=== PATIENT | female | born 1975 | race Caucasian/White ===

== ENCOUNTER 2024-11-16 11:01 | Inpatient (IN) | payer OTHER, SELFPAY ==
--- OUTSIDE RECORDS SUMMARY | 2024-11-12 14:04 | XMS_ITS | Encounter Summary ---
Author Organization [facility] Address [address] [place] [address] Care Team Providers Care Agricultural Real Estate Agent Name Role Phone Unavailable Primary Care Provider Unavailabl e Reason for Referral * Eval and Treat (5-7 Days) - Open Specialty Diagnoses / Procedures Referred By Jared silva Referred To Contact Diagnoses Breast abscess Procedures NV OFFICE/OUTPATIENT ESTABLISHED MOD MDM 30 MIN NV OFFICE/OUTPATIENT NEW MODERATE MDM 45 MINUTES Jaquan Ramirez MD [address] [place] [address] [place] [phone] Phone: tel: fax: Referral ID Status Reason Start Date Expiration Date Visits Re quested Visits Authorized [id number] Open 11/12/2024 11/12/2025 1 1 Reason for Visit * Reason Comments Abscess Encounter Details Date Type Department Care Team (Late st Contact Info) Description 11/12/2024 2:04 PM CDT - 11/12/2024 3:46 PM CDT [facility] [address] [address] [place] [id number] Jaquan Ramirez MD [address] [place] [address] [place] [phone] Breast abscess (Primary Dx) Discharge Disposition: Home or Self Care Social History Tobacco Use Types Packs/Day Years Used Date Smoking Tobacco: Never Tobacco Cessation:Counseling Given: Not Answered Alcohol Use Standard Drinks/Week Comments Never 0 (1 standard drink = 0.6 oz pur e alcohol) Comments Unknown Sex and Gender Information Value Date Recorded Sex Assigned at Not on file Legal Sex Female 1:59 PM CDT Gender Identity Not on file Sexual Orientation Not on file documented as of this encounter Last Filed Vital Signs Vital Sign Reading Time Taken Comments Blood Pressure 100/43 11/12/2024 3:45 PM CDT Pulse 72 11/12/2024 3:30 PM CDT Temperature 36.2 C (97.2 F) 11/12/2024 2:08 PM CDT Respiratory Rate 16 11/12/2024 3:45 PM CDT Oxygen Saturation 96% 11/12/2024 3:45 PM CDT Inhaled Oxygen Concentration - - Weight 98.2 kg (216 lb 9.6 oz) 11/12/2024 2:08 P M CDT Height 161.3 cm (5' 3.5 ) 11/12/2024 2:08 PM CDT Body Mass Index 37.77 11/12/2024 2:08 PM CDT documented in this encounter Discharge Instructions * Attachments The following attachments cannot be sent through Care Everywhere. * Breast Abscess (Malawian) * Ondansetron (Malawian) * Amoxicillin and Clavulanic Acid (Malawian) * Oxycodone (Malawian) documented in this encounter Medications at Time of Discharge amoxicillin-clavu lanate (AUGMENTIN) 875-125 mg tablet Take 1 Tablet by mouth every 12 hours for 10 days. 20 Tablet 11/12/2024 11/22/2024 oxyCODONE-acetami nophen (PERCOCET) 5-325 mg tabletIndications :Breast abscess Take 1 Tablet by mouth every 4 hours as needed for Pain, Moderate. Max Daily Amount: 6 Tablets 30 Tablet 11/12/2024 documented as of this encounter Progress Notes * Zenaida Baltazar RN - 11/12/2024 4:05 PM CDT [facility] Sepsis Surveillance note A positive vSepsis screen does not imply diagnosis. Potential vSepsis Time Zero: Yes (11/12/241544) Clinical Criteria documented at time of alert: Criteria A - Questionable Infection Present?: Yes (11/12/241544) Questionable source of infection: Risk for Skin/Soft Tissue Infection (11/12/241544) SIRS Criteria: Heart rate (pulse) > 90 bpm;WBC > 12 k/mcL (11/12/241544) Organ Dysfunction Criteria: Hypotension SBP < 90 or MAP < 65 (11/12/241544) Questionable Severe Sepsis/Questionable Septic Shock/Other?: Questionable Severe Sepsis (per [facility]) (11/12/241544) Initial Lactic Acid?: Yes, Ordered by Bedside;Collected - Yes (Within time frame) (11/12/241544) [facility] SEP-1 Bundle Elements at time of alert: Repeat Lactic Acid Ordered?: N/A (11/12/241544) Blood Cultures?: Yes, Ordered by Bedside;Collected - Yes (Within time frame) (11/12/241544) Antibiotics?: Ordered - Yes;Administered - Yes (Within time frame) (11/12/241544) All initial bundle elements ordered and/or completed; chat/call to bedside deferred. Will continue to monitor through the duration of the timer or until case is cancelled. Please call [email or web address] Seps[facility] if any assistance is needed. Please call [employer] Sepsis if the patient does not have severe sepsis / septic shock and the sepsis alert needs to be cancelled. [employer] Sepsis Zenaida Baltazar RN documented in this encounter ED Notes * Molly Marroquin RN - 11/12/2024 2:23 PM CDT Patient presents to the emergency department via private vehicle for a breast abscess. Patient reports history of HS and has had previous abscesses that have had to be surgically drained off of her breast and axilla. Patient states she developed a breast abscess a week ago. States she has had subjective fevers. States she has been using a heating pad over the area. Denies other symptoms. Vital signs as documented. * Jaquan Ramirez MD - 11/12/2024 1:59 PM CDTAssociated Order(s): Incision and Drainage HISTORY OF PRESENT ILLNESS Hiwot Gaona, a 49 y.o. female presents to the ED with a Chief Complaint of Abscess Subjective This is a 49-year-old white female who presents to the emergency department with a large left breast abscess. She states she first noticed this 1 week ago. Patient has a history of breast abscesses as well as axillary abscesses. She has been diagnosed with hidradenitis suppurativa. She has noticeda low-grade fever recently. Patient states she has had several surgeries on the breasts done in [place]. She recently moved to this area. REVIEW OF SYSTEMS Review of Systems Constitutional: Positive for fever. Negative for activity change, appetite change, chills, diaphoresis and fatigue. HENT: Negative for congestion, dental problem, ear pain, postnasal drip, rhinorrhea, sinus pressure, sore throat, tinnitus and trouble swallowing. Eyes: Negative for photophobia, pain, discharge, redness and visual disturbance. Respiratory: Negative for cough, chest tightness, shortness of breath and wheezing. Cardiovascular: Negative for chest pain, palpitations and leg swelling. Gastrointestinal: Negative for abdominal distention, abdominal pain, blood in stool, constipation, diarrhea, nausea and vomiting. Genitourinary: Negative for decreased urine volume, difficulty urinating, dyspareunia, dysuria, flank pain, frequency, hematuria, menstrual problem, pelvic pain, urgency, vaginal bleeding and vaginaldischarge. Musculoskeletal: Negative for arthralgias, back pain, gait problem, joint swelling, myalgias, neck pain and neck stiffness. Skin: Positive for color change. Negative for rash. Left breast abscess. Neurological: Negative for dizziness, seizures, speech difficulty, weakness, light-headedness, numbness and headaches. Hematological: Negative for adenopathy. Psychiatric/Behavioral: Negative for agitation, behavioral problems, confusion, dysphoric mood, hallucinations, self-injury, sleep disturbance and suicidal ideas. The patient is not nervous/anxious. All other systems reviewed and are negative. PAST MEDICAL HISTORY REVIEWED MEDICAL: Patient has no past medical history on file. SURGICAL: Patient has no past surgical history on file. FAMILY: Patient's family history is not on file. SOCIAL: reports that she has never smoked. She does not have any smokeless tobacco history on file. She reports that she does not drink alcohol and does not use drugs. No history on file. Social History Other Topics Concern Not on file ALLERGIES Septa HOME MEDICATIONS Discharge Medication List as of 11/12/2024 3:58 PM START taking these medications Details amoxicillin-clavulanate (AUGMENTIN) 875-125 mg tablet Take 1 Tablet by mouth every 12 hours for 10 days., Disp-20 Tablet, R-0 oxyCODONE-acetaminophen (PERCOCET) 5-325 mg tablet Take 1 Tablet by mouth every 4 hours as needed for Pain, Moderate. Max Daily Amount: 6 Tablets, Disp-30 Tablet, R-0 Objective PHYSICAL EXAM INITIAL VS BP: 128/68 (11/12/24 1408), Heart Rate: 94 bpm (11/12/24 1408), Resp: 16 (11/12/24 1408), Pulse: 76(11/12/24 1430), Temp: 97.2 ??F (36.2 ??C) (11/12/24 1408), Temp src: Temporal (11/12/24 140), SpO2: 97 % (11/12/24 140), Height: 5' 3.5 (161.3 cm) (11/12/24 1408), Weight: 98.2 kg (216 lb 9.6 oz)(11/12/24 140), BMI (Calculated): (!) 37.74 (11/12/24 140) No LMP recorded. Physical Exam Vitals and nursing note reviewed. Constitutional: General: She is in acute distress (mild). Appearance: She is well-developed. HENT: Head: Normocephalic and atraumatic. Eyes: Conjunctiva/sclera: Conjunctivae normal. Pupils: Pupils are equal, round, and reactive to light. Cardiovascular: Rate and Rhythm: Normal rate and regular rhythm. Heart sounds: Normal heart sounds. Pulmonary: Effort: Pulmonary effort is normal. No respiratory distress. Breath sounds: Normal breath sounds. Abdominal: General: Bowel sounds are normal. Palpations: Abdomen is soft. Tenderness: There is no abdominal tenderness. Musculoskeletal: General: No tenderness. Normal range of motion. Cervical back: Normal range of motion and neck supple. Skin: General: Skin is warm and dry. Comments: There appears to be an abscess over the left breast just medial to the nipple involving the areola. There is a large surrounding area of erythema. Abscess fluctuant. Very tender. No active drainage. Neurological: Mental Status: She is alert and oriented to person, place, and time. Cranial Nerves: No cranial nerve deficit. Psychiatric: Behavior: Behavior normal. Thought Content: Thought content normal. DIAGNOSTICS LAB: CBC WITH DIFFERENTIAL - Abnormal Result Value WBC 14.4 (*) RBC 4.65 HEMOGLOBIN 13.3 HEMATOCRIT 40.0 MCV 86.0 MCH 28.6 MCHC 33.3 RDW 13.1 RDW-STDEV 40.9 PLATELETS 271 MPV 10.6 NEUTROPHILS 72 (*) LYMPHOCYTES 16 (*) MONOCYTES 10 EOSINOPHILS 1 BASOPHILS 0 IMMATURE GRANULOCYTES 0 NEUTROPHIL ABSOLUTE 10.45 (*) LYMPHOCYTE ABSOLUTE 2.25 MONOCYTE ABSOLUTE 1.50 (*) EOSINOPHIL ABSOLUTE 0.15 BASOPHILS ABSOLUTE 0.06 IMMATURE GRANULOCYTES ABSOLUTE 0.03 BASIC METABOLIC PANEL - Abnormal SODIUM 138 POTASSIUM 4.4 CHLORIDE 100 CO2 23 CALCIUM 9.3 BUN 16 CREATININE 0.92 GLUCOSE 105 (*) GFR >60 ANION GAP 15 LACTIC ACID - Normal LACTIC ACID 2.0 BLOOD CULTURE BLOOD CULTURE MANUAL DIFFERENTIAL PLATELET EST. Adequate RBC MORPHOLOGY Normal CLUMPED PLATELETS Present GIANT PLATELETS Present RADIOLOGY: No orders to display EKG: PROCEDURES Incision and Drainage Date/Time: 11/12/2024 2:58 PM Performed by: Jaquan Ramirez MD Authorized by: Jaquan Ramirez MD Consent: Consent obtained: Verbal Consent given by: Patient Risks discussed: Pain Location: Type: Abscess Location: Trunk Trunk location: L breast Pre-procedure details: Skin preparation: Povidone-iodine Sedation: Sedation type: None Anesthesia: Anesthesia method: Local infiltration Local anesthetic: Lidocaine 1% w/o epi Procedure type: Complexity: Simple Procedure details: Ultrasound guidance: no Needle aspiration: no Incision types: Stab incision Incision depth: Subcutaneous Drainage: Bloody Drainage amount: Scant Packing materials: None Post-procedure details: Procedure completion: Tolerated with difficulty MEDICAL DECISION MAKING AND PLAN OF CARE Medical Decision Making I was unable to obtain any significant drainage from the I&D. The abscess is likely much deeperthan anticipated. We did start an IV and lei labs. [facility]. I discussed this case with Dr. Wilson, breast surgeon, [facility]. She recommends scheduling an ultrasound-guided drainage. They will schedule that through the breast center in [place] and contact the patient. Patient was given 3 g of Unasyn IV here as well as Dilaudid for pain. Patient was discharged in stable condition with prescriptions for Augmentin and Percocet. She was told the breast clinic will contact her regarding the appointment for the ultrasound-guided drainage. Amount and/or Complexity of Data Reviewed Labs: ordered. Risk Prescription drug management. Clinical Scoring & Consults Medications Administered During the ED Stay from 11/12/2024 1359 to 11/15/2024 1913 Date/Time Order Dose Route Action 11/12/2024 1445 CDT lidocaine 1 % (XYLOCAINE) injection 200 mg 200 mg Infiltration Admin by AnotherClinician (Comment) 11/12/2024 1554 CDT ampicillin-sulbactam (UNASYN) 3 Gram in sodium chloride 0.9 % 100 mL IVPB 0 Gram IV Stopped 11/12/2024 1524 CDT ampicillin-sulbactam (UNASYN) 3 Gram in sodium chloride 0.9 % 100 mL IVPB 3 Gram IV New Bag 11/12/2024 1501 CDT HYDROmorphone (PF) (DILAUDID) injection 0.5 mg 0.5 mg IV Given 11/12/2024 1500 CDT ondansetron (ZOFRAN) 4 mg/2 mL injection 4 mg 4 mg IV Given Discharge Medication List as of 11/12/2024 3:58 PM START taking these medications Details amoxicillin-clavulanate (AUGMENTIN) 875-125 mg tablet Take 1 Tablet by mouth every 12 hours for 10 days., Disp-20 Tablet, R-0 oxyCODONE-acetaminophen (PERCOCET) 5-325 mg tablet Take 1 Tablet by mouth every 4 hours as needed for Pain, Moderate. Max Daily Amount: 6 Tablets, Disp-30 Tablet, R-0 LAST VS BP: (!) 100/43 (11/12/24 1545), Heart Rate: 94 bpm (11/12/24 1408), Resp: 16 (11/12/24 1545), Pulse: 72 (11/12/24 1530), Temp: 97.2 ??F (36.2 ??C) (11/12/24 1408), Temp src: Temporal (11/12/24 1408),SpO2: 96 % (11/12/24 1545) CLINICAL IMPRESSION Final diagnoses: [N61.1] Breast abscess (Primary) DISPOSITION, EDUCATION AND MEDICATION RECONCILIATION Medications reconciled. See after visit summary for patient education on discharged patients. ED Disposition ED Disposition Discharge Condition Stable User Sindlinger, Jaquan S, MD Date/Time FriNov 12, 2024 3:32 PM Comment -- ATTESTATION STATEMENTS documented in this encounter Plan of Treatment Pending Results Name Type Priority Associated Diagnoses Date /Time BLOOD CULTURE Microbiology Stat 3:07 PM CDT BLOOD CULTURE Microbiology Stat 3:12 PM CDT BLOOD CULTURE Microbiology Stat 3:07 PM CDT BLOOD CULTURE Microbiology Stat 3:12 PM CDT Scheduled Orders Name Type Priority Associated Diagnoses Orde r Schedule BLOOD CULTURE Microbiology Routine ONE TIME for 1 Occurrences starting 11/12/2024 until 11/12/2024 BLOOD CULTURE Microbiology Routine ONE TIME for 1 Occurrences starting 11/12/2024 until 11/12/2024 Scheduled Referrals Name Type Priority Associated Diagnoses Orde r Schedule AMB REFERRAL TO BREAST CLINIC Outpatient Referral Routine Breast abscess Ordered: 11/12/2024 documented as of this encounter Procedures Procedure Name Priority Date/Time Associated Diagnosis Comments BLOOD CULTURE Stat 11/12/2024 3:12 PM CDT BLOOD CULTURE Stat 11/12/2024 3:07 PM CDT INCISION AND DRAINAGE, ABSCESS Routine 11/12/2024 2:58 PM CDT DIFFERENTIAL, MANUAL Stat 11/12/2024 2:55 PM CDT LACTIC ACID Stat 11/12/2024 2:55 PM CDT CBC WITH DIFFERENTIAL Stat 11/12/2024 2:55 PM CDT BASIC METABOLIC PANEL Stat 11/12/2024 2:55 PM CDT documented in this encounter Results * Incision and Drainage (11/12/2024 2:58 PM CDT) Narrative Jaquan Ramirez MD - 11/12/2024 2:58 PM CDT Jaquan Ramirez MD 11/15/2024 7:13 PM Incision and Drainage Date/Time: 11/12/2024 2:58 PM Performed by: Jaquan Ramirez MD Authorized by: Jaquan Ramirez MD Consent: Consent obtained: Verbal Consent given by: Patient Risks discussed: Pain Location: Type: Abscess Location: Trunk Trunk location: L breast Pre-procedure details: Skin preparation: Povidone-iodine Sedation: Sedation type: None Anesthesia: Anesthesia method: Local infiltration Local anesthetic: Lidocaine 1% w/o epi Procedure type: Complexity: Simple Procedure details: Ultrasound guidance: no Needle aspiration: no Incision types: Stab incision Incision depth: Subcutaneous Drainage: Bloody Drainage amount: Scant Packing materials: None Post-procedure details: Procedure completion: Tolerated with difficulty Jaquan Ramirez MD PROCEDURE/MINOR SURGICAL ORDERABLES Final Result * MANUAL DIFFERENTIAL (11/12/2024 2:55 PM CDT) PLATELET EST. Adequate 11/12/2024 3:24 PM CDT [facility] RBC MORPHOLOGY Normal 11/12/2024 3:24 PM CDT [facility] CLUMPED PLATELETS Present 11/12/2024 3:24 PM CDT [facility] Comment:Rare platelet clump observed on slide. Platelets appear adequate. GIANT PLATELETS Present 3:24 PM CDT [facility] Blood Venipuncture / Unknown 11/12/2024 2:55 PM CDT 11/12/2024 3:00 PM CDT Jaquan Ramirez MD HEMATOLOGY ORDERABLES CO M Final Result [facility] CLIA # [id number] [address] [place] [id number] * LACTIC ACID (11/12/2024 2:55 PM CDT) LACTIC ACID 2.0 <=2.0 mmol/L 11/12/2024 3:25 PM CDT [facility] Blood BLOOD SPECIMEN / Unknown Venipuncture / Unknown 11/12/2024 2:55 PM CDT 11/12/2024 3:00 PM CDT Jaquan Ramirez MD CHEMISTRY ORDERABLES Fin al Result [facility] CLIA # [id number] [address] [address] * (ABNORMAL) BASIC METABOLIC PANEL (11/12/2024 2:55 PM CDT) SODIUM 138 136 - 145 mmol/L 11/12/2024 3:24 PM CDT [facility] POTASSIUM 4.4 3.5 - 5.1 mmol/L 11/12/2024 3:24 PM T [facility] CHLORIDE 100 98 - 107 mmol/L 11/12/2024 3:24 PM T [facility] CO2 23 22 - 29 mmol/L 11/12/2024 3:24 PM T [facility] CALCIUM 9.3 8.6 - 10.0 mg/dL 11/12/2024 3:24 PM T [facility] BUN 16 6 - 20 mg/dL 11/12/2024 3:24 PM [facility] CREATININE 0.92 0.51 - 0.95 mg/dL 11/12/2024 3:24 PM [facility] GLUCOSE 105(H) 74 - 99 mg/dL 11/12/2024 3:24 PM [facility] GFR >60 >=60 mL/min/1.7 3 sq meter 11/12/2024 3:24 PM T [facility] Comment:eGFR calculated with 2020 CKD-EPI equation. Vegetarian diet, extremely high or low muscle mass, and may affect results. Cystatin C with Glomerular Filtration Rate is a suitable alternative for these patients. ANION GAP 15 5 - 20 mmol/L 11/12/2024 3:24 PM T [facility] Blood Venipuncture / Unknown 11/12/2024 2:55 PM CDT 11/12/2024 3:00 PM CDT us Jaquan Ramirez MD CHEMISTRY ORDERABLES Fin al Result [facility] CLIA # [id number] [address] [place] [id number] * (ABNORMAL) CBC WITH DIFFERENTIAL (11/12/2024 2:55 PM CDT) WBC 14.4(H) 4.0 - 10.0 K/uL 11/12/2024 3:24 PM CDT [facility] RBC 4.65 3.93 - 5.22 M/uL 11/12/2024 3:24 PM [facility] HEMOGLOBIN 13.3 11.2 - 15.7 g/dL 11/12/2024 3:24 PM [facility] HEMATOCRIT 40.0 34.1 - 44.9 % 11/12/2024 3:24 PM T [facility] MCV 86.0 79.4 - 94.8 fL 11/12/2024 3:24 PM T [facility] MCH 28.6 25.6 - 32.2 pg 11/12/2024 3:24 PM [facility] MCHC 33.3 32.2 - 35.5 g/dL 11/12/2024 3:24 PM [facility] RDW 13.1 11.0 - 14.5 % 11/12/2024 3:24 PM [facility] RDW-STDEV 40.9 36.9 - 56.9 fL 11/12/2024 3:24 PM [facility] PLATELETS 271 163 - 337 K/uL 11/12/2024 3:24 PM [facility] MPV 10.6 10.0 - 14.8 fL 11/12/2024 3:24 PM [facility] NEUTROPHILS 72(H) 34 - 71 % 11/12/2024 3:24 PM T [facility] LYMPHOCYTES 16(L) 19 - 52 % 11/12/2024 3:24 PM CDT [facility] MONOCYTES 10 5 - 13 % 11/12/2024 3:24 PM T [facility] EOSINOPHILS 1 1 - 6 % 11/12/2024 3:24 PM [facility] BASOPHILS 0 0 - 1 % 11/12/2024 3:24 PM [facility] IMMATURE GRANULOCYTES 0 % 11/12/2024 3:24 PM T [facility] NEUTROPHIL ABSOLUTE 10.45(H) 1.56 - 6.13 K/uL 11/12/2024 3:24 PM [facility] LYMPHOCYTE ABSOLUTE 2.25 1.20 - 3.40 K/uL 11/12/2024 3:24 PM [facility] MONOCYTE ABSOLUTE 1.50(H) 0.24 - 0.36 K/uL 11/12/2024 3:24 PM [facility] EOSINOPHIL ABSOLUTE 0.15 0.04 - 0.36 K/uL 11/12/2024 3:24 PM [facility] BASOPHILS ABSOLUTE 0.06 0.01 - 0.08 K/uL 11/12/2024 3:24 PM [facility] IMMATURE GRANULOCYTES ABSOLUTE 0.03 K/uL 11/12/2024 3:24 PM [facility] Blood Venipuncture / Unknown 11/12/2024 2:55 PM CDT 11/12/2024 3:00 PM CDT Jaquan Ramirez MD HEMATOLOGY ORDERABLES nal Result [facility] CLIA # [id number] [address] [place] [id number] documented in this encounter Visit Diagnoses Diagnosis Breast abscess- Primary Inflammatory disease of breast documented in this encounter Administered Medications Inactive Administered Medications - up to 3 most recent administrations Medication Order MAR Action Action Date Dose Rate Site ampicillin-sulbactam (UNASYN) 3 Gram in sodium chloride 0.9 % 100 mL IVPB 3 Gram, IV, ONE TIME ONLY, 1 dose, On Fri11/12/24 at 1445, Routine, Antibiotic Indication: Wound / Cellulitis / Abscess New Bag 11/12/2024 3:24 PM CDT 3 Grams 230 mL/hr HYDROmorphone (PF) (DILAUDID) injection 0.5 mg 0.5 mg, IV, ONE TIME ONLY, 1 dose, On Fri11/12/24 at 1445, Stat Given 11/12/2024 3:01 PM CDT 0.5 mg lidocaine 1 % (XYLOCAINE) injection 200 mg 200 mg (20 mL), Infiltration, ONE TIME ONLY, 1 dose, On Fri11/12/24 at 1430, Routine Admin by Another Clinician (Comment) 11/12/2024 2:45 PM CDT 200 mg ondansetron (ZOFRAN) 4 mg/2 mL injection 4 mg 4 mg, IV, ONE TIME ONLY, 1 dose, On Fri11/12/24 at 1445, Stat Given 11/12/2024 3:00 PM CDT 4 mg documented in this encounter Active and Recently Administered Medications Times are shown in CDT. Scheduled Medication Order 11/10/2024 11/11/2024 11/12/2024 ampicillin-sulbactam (UNASYN) 3 Gram in sodium chloride 0.9 % 100 mL IVPB (COMPLETED) 3 Gram, IV, ONE TIME ONLY, 1 dose, On Fri11/12/24 at 1445, Routine, Antibiotic Indication: Wound / Cellulitis / Abscess 1524 (New Bag - Prov ider: Molly Marroquin RN)1554 (Stopped - Provider: Molly Marroquin RN) HYDROmorphone (PF) (DILAUDID) injection 0.5 mg (COMPLETED) 0.5 mg, IV, ONE TIME ONLY, 1 dose, On Fri11/12/24 at 1445, Stat 1501 (Given - Provid er: Vanessa Marquez RN) lidocaine 1 % (XYLOCAINE) injection 200 mg (COMPLETED) 200 mg (20 mL), Infiltration, ONE TIME ONLY, 1 dose, On Fri11/12/24 at 1430, Routine 1430 (Due)1445 (Admi n by Another Clinician (Comment) - Provider: Molly Marroquin RN - Comment: Dr. Ramirez) ondansetron (ZOFRAN) 4 mg/2 mL injection 4 mg (COMPLETED) 4 mg, IV, ONE TIME ONLY, 1 dose, On Fri11/12/24 at 1445, Stat 1500 (Given - Provid er: Vanessa Marquez RN) documented in this encounter
[2024-11-16] VITALS (7 sets, daily range): BP systolic 99–148; BP diastolic 67–88; PULSE 54–77; RESP 16–22; TEMP 36.7; O2SAT 96–100
--- OUTSIDE RECORDS SUMMARY | 2024-11-16 11:11 | XMS_ITS | Encounter Summary ---
Author Organization [employer] [facility] Address [address] [place] [address] Care Team Providers Care Residential Recycle Driver Name Role Phone Unavailable Primary Care Provider Unavailabl e Reason for Referral * Radiology Services (Urgent) - Authorized Specialty Diagnoses / Procedures Referred By Contac t Referred To Contact Diagnoses Left breast abscess Procedures MAMMO BREAST US SEROMA ASPIRATION LT US GUIDED ASPIRATION Venus Wilson DO [address] [place] [phone] Phone: tel: fax: [facility] Pre-Registration [place] CALL TO MAKE APPOINTMENT ONLY [address] [place] [address] Phone: tel: fax: Referral ID Status Reason Start Date Expiration Date V isits Requested Visits Authorized [id number] Authorized 11/12/2024 12/13/2025 1 1 * Radiology Services (Urgent) - Authorized Specialty Diagnoses / Procedures Referred By Contac t Referred To Contact Diagnoses Left breast abscess Procedures MAMMO BREAST US LEFT LTD Venus Wilson DO [address] [place] [phone] Phone: tel: fax: [facility] Pre-Registration [place] CALL TO MAKE APPOINTMENT ONLY [address] [place] [address] Phone: tel: fax: Referral ID Status Reason Start Date Expiration Date V isits Requested Visits Authorized [id number] Authorized 11/12/2024 12/13/2025 1 1 Encounter Details Date Type Department Care Team (Late st Contact Info) Description 11/12/2024 Chart Note [facility] Breast Surgery [address] [place] [address] Venus Wilson DO [address] [place] [address] Social History Tobacco Use Types Packs/Day Years Used Date Smoking Tobacco: Never Alcohol Use Standard Drinks/Week Comments Never 0 (1 standard drink = 0.6 oz pur e alcohol) Comments Unknown Sex and Gender Information Value Date Recorded Sex Assigned at Not on file Legal Sex Female 1:59 PM CDT Gender Identity Not on file Sexual Orientation Not on file documented as of this encounter Progress Notes * Venus Wilson DO - 11/12/2024 3:09 PM CDT Received a call from Dr. Ramirez at [place] regarding this patient and findings consistent with left breast abscess. I&D was attempted but did not results in any successful drainage. Reported history of hidradenitis. Vitals stable, labs pending. No imaging available. I recommend oral antibiotics and arranging for outpatient left breast limited ultrasound with US-guided aspiration of the abscess. She can follow up in our clinic if feasible for her. I will reach out to the breast center regarding her imaging. Venus Wilson DO documented in this encounter Plan of Treatment Scheduled Orders Name Type Priority Associated Diagnoses Orde r Schedule MAMMO BREAST US LEFT LTD Imaging Stat Left breast abscess 1 Occurrences starting 11/12/2024 until 05/15/2026 MAMMO BREAST US SEROMA ASPIRATION LT Imaging Stat Left breast abscess 1 Occurrences starting 11/12/2024 until 11/12/2025 documented as of this encounter Visit Diagnoses Diagnosis Left breast abscess- Primary Inflammatory disease of breast documented in this encounter
--- OUTSIDE RECORDS SUMMARY | 2024-11-16 11:11 | XMS_ITS | Encounter Summary ---
Author Organization [facility] Address [address] [facility] [address] [address] Attn: Epic Prelude ADT SOHAM WHITNEY [address] Care Team Providers Care Director Of District Office Name Role Phone Unavailable Primary Care Provider Unavailabl e Encounter Details Date Type Department Care Team (Latest Contact Info) Description 11/12/2024 Travel Social History Tobacco Use Types Packs/Day Years [...] on file documented as of this encounter Plan of Treatment Not on file documented as of this encounter Visit Diagnoses Not on filedocumented in this encounter
--- OUTSIDE RECORDS SUMMARY | 2024-11-16 11:11 | XMS_ITS | Clinical Summary ---
[facility] Address [address] [address] Phone Care Team Providers Care Construction Area Manager Name Role Phone Unavailable Primary Care Provider Unavailabl e Allergies Active Allergy Reactions Criticality Noted Date Comments Septa Rash,Nausea and Vomiting Low 11/12/2024 Medications amoxicillin-cla vulanate (AUGMENTIN) 875-125 mg tablet Take 1 Tablet by mouth every 12 hours for 10 days. 20 Tablet 11/12/2024 11/23/19 25 Active oxyCODONE-aceta minophen (PERCOCET) 5-325 mg tabletIndicatio ns:Breast abscess Take 1 Tablet by mouth every 4 hours as needed for Pain, Moderate. Max Daily Amount: 6 Tablets 30 Tablet 11/12/2024 Active ondansetron (ZOFRAN ODT) 4 mg Tablet, Rapid Dissolve Take 1 Tablet (4 mg) by mouth every 8 hours as needed for Nausea/Emesis . Dissolve tablet on top of tongue, then swallow with saliva. 20 Tablet 11/12/2024 Active Encounters Date Type Department Care Team Description 11/14/2024 Results Follow-Up [facility] Emergency Medicine [address] [address] oMlly Marroquin RN BLOOD CULTURE, BLOOD CULTURE 11/12/2024 2:04 PM CDT - 11/12/2024 3:46 PM CDT Emergency [facility] Emergency Medicine [address] [place] [phone] Jaquan Ramirez MD Breast abscess (Primary Dx) Discharge Disposition: Home or Self Care 11/12/2024 Chart Note [facility] Breast Surgery [address] [place] [address] Venus Wilson DO 11/12/2024 Travel from Last 3 Months Social History Tobacco Use Types Packs/Day Years [...] on file Sexual Orientation Not on file Last Filed Vital Signs Vital Sign Reading [...] Mass Index 37.77 11/12/2024 2:08 PM CDT Plan of Treatment Health Maintenance Due Date Last Done Comments Pre-Diabetes and Diabetes Screening 1977 DTAP/TDAP/TD VACCINES (1 - Tdap) 1996 HEPATITIS B VACCINES (1 of 3 - 19+ 3-dose series) 11/1996 BREAST CANCER SCREENING 2017 COLORECTAL SCREENING 2022 Colorectal Cancer Screening 2022 FIT-DNA Q 3 years 2022 FIT/FOBT Q 1 year 2022 Flex Sig/CT Colonography Q 5 years 2022 INFLUENZA VACCINE (#1) 2024 Procedures Procedure Name Priority Date/Time Associated Diagnosis Comments BLOOD CULTURE Stat 11/12/2024 3:12 PM CDT BLOOD CULTURE Stat 11/12/2024 3:07 PM CDT INCISION AND DRAINAGE, ABSCESS Routine 11/12/2024 2:58 PM CDT DIFFERENTIAL, MANUAL Stat 11/12/2024 2:55 PM CDT LACTIC ACID Stat 11/12/2024 2:55 PM CDT BASIC METABOLIC PANEL Stat 11/12/2024 2:55 PM CDT CBC WITH DIFFERENTIAL Stat 11/12/2024 2:55 PM CDT from Last 3 Months Results * Incision and Drainage (11/12/2024 2:58 [...] PLATELET EST. Adequate 11/12/2024 3:24 PM CDT [facility] RBC MORPHOLOGY Normal 11/12/2024 3:24 PM CDT [facility] CLUMPED PLATELETS Present 11/12/2024 3:24 PM CDT [facility] Comment:Rare platelet clump observed on slide. Platelets appear adequate. GIANT PLATELETS Present 3:24 PM CDT [facility] Blood Venipuncture / Unknown 11/12/2024 2:55 PM CDT 11/12/2024 3:00 PM CDT Jaquan Ramirez MD HEMATOLOGY ORDERABLES CO M Final Result [facility] CLIA # [id number] [address] [place] [id number] * LACTIC ACID (11/12/2024 2:55 PM CDT) LACTIC ACID 2.0 <=2.0 mmol/L 11/12/2024 3:25 PM CDT [facility] Blood BLOOD SPECIMEN / Unknown Venipuncture / Unknown 11/12/2024 2:55 PM CDT 11/12/2024 3:00 PM CDT Jaquan Ramirez MD CHEMISTRY ORDERABLES Fin al Result Performing Organization Address [facility] Co de Phone Number [facility] CLIA # [id number] [address] [place] [phone] * (ABNORMAL) CBC WITH DIFFERENTIAL (11/12/2024 2:55 PM CDT) WBC 14.4(H) 4.0 - 10.0 K/uL 11/12/2024 3:24 PM CDT [facility] RBC 4.65 3.93 - 5.22 M/uL 11/12/2024 3:24 PM CDT [facility] HEMOGLOBIN 13.3 11.2 - 15.7 g/dL 11/12/2024 3:24 PM CDT [facility] HEMATOCRIT 40.0 34.1 - 44.9 % 11/12/2024 3:24 PM CDT [facility] MCV 86.0 79.4 - 94.8 fL 11/12/2024 3:24 PM CDT [facility] MCH 28.6 25.6 - 32.2 pg 11/12/2024 3:24 PM CDT [facility] MCHC 33.3 32.2 - 35.5 g/dL 11/12/2024 3:24 PM [facility] RDW 13.1 11.0 - 14.5 % 11/12/2024 3:24 PM [facility] RDW-STDEV 40.9 36.9 - 56.9 fL 11/12/2024 3:24 PM [facility] PLATELETS 271 163 - 337 K/uL 11/12/2024 3:24 PM [facility] MPV 10.6 10.0 - 14.8 fL 11/12/2024 3:24 PM [facility] NEUTROPHILS 72(H) 34 - 71 % 11/12/2024 3:24 PM [facility] LYMPHOCYTES 16(L) 19 - 52 % 11/12/2024 3:24 PM [facility] MONOCYTES 10 5 - 13 % 11/12/2024 3:24 PM [facility] EOSINOPHILS 1 1 - 6 % 11/12/2024 3:24 PM [facility] BASOPHILS 0 0 - 1 % 11/12/2024 3:24 PM [facility] IMMATURE GRANULOCYTES 0 % 11/12/2024 3:24 PM [facility] NEUTROPHIL ABSOLUTE 10.45(H) 1.56 - 6.13 K/uL 11/12/2024 3:24 PM [facility] LYMPHOCYTE ABSOLUTE 2.25 1.20 - 3.40 K/uL 11/12/2024 3:24 PM [facility] MONOCYTE ABSOLUTE 1.50(H) 0.24 - 0.36 K/uL 11/12/2024 3:24 PM [facility] EOSINOPHIL ABSOLUTE 0.15 0.04 - 0.36 K/uL 11/12/2024 3:24 PM [facility] BASOPHILS ABSOLUTE 0.06 0.01 - 0.08 K/uL 11/12/2024 3:24 PM [facility] IMMATURE GRANULOCYTES ABSOLUTE 0.03 K/uL 11/12/2024 3:24 PM [facility] Blood Venipuncture / Unknown 11/12/2024 2:55 PM CDT 11/12/2024 3:00 PM CDT us Jaquan Ramirez MD HEMATOLOGY ORDERABLES Fi nal Result [facility] CLIA # [id number] [address] [place] [address] * (ABNORMAL) BASIC METABOLIC PANEL (11/12/2024 2:55 PM CDT) SODIUM 138 136 - 145 mmol/L 11/12/2024 3:24 PM T [facility] POTASSIUM 4.4 3.5 - 5.1 mmol/L 11/12/2024 3:24 PM [facility] CHLORIDE 100 98 - 107 mmol/L 11/12/2024 3:24 PM [facility] CO2 23 22 - 29 mmol/L 11/12/2024 3:24 PM [facility] CALCIUM 9.3 8.6 - 10.0 mg/dL 11/12/2024 3:24 PM [facility] BUN 16 6 - 20 mg/dL 11/12/2024 3:24 PM [facility] CREATININE 0.92 0.51 - 0.95 mg/dL 11/12/2024 3:24 PM [facility] GLUCOSE 105(H) 74 - 99 mg/dL 11/12/2024 3:24 PM [facility] GFR >60 >=60 mL/min/1.7 3 sq meter 11/12/2024 3:24 PM [facility] Comment:eGFR calculated with 2020 CKD-EPI equation. Vegetarian diet, extremely high or low muscle mass, and may affect results. Cystatin C with Glomerular Filtration Rate is a suitable alternative for these patients. ANION GAP 15 5 - 20 mmol/L 11/12/2024 3:24 PM [facility] Blood Venipuncture / Unknown 11/12/2024 2:55 PM CDT 11/12/2024 3:00 PM CDT us Jaquan Ramirez MD CHEMISTRY ORDERABLES Bakari al Result [facility] # [id number] [address] [place] [phone] from Last 3 Months
--- OUTSIDE RECORDS SUMMARY | 2024-11-16 11:11 | XMS_ITS | Encounter Summary ---
Author Organization [facility] Address [address] [place] [address] Care Team Providers Care Computer Aided Design Designer Name Role Phone Unavailable Primary Care Provider Unavailabl e Encounter Details Date Type Department Care Team (Late st Contact Info) Description 11/14/2024 Results Follow-Up [facility] Emergency Medicine [address] [place] [address] Molly Marroquin RN BLOOD CULTURE, BLOOD CULTURE Social History Tobacco Use Types Packs/Day Years [...]
--- NOTE | 2024-11-16 11:34 | W.ED.SKABFB ---
Documented by User: NORBERTO Barragan 11/16/24 14:24 HPI - Skin/Abscess/Foreign Bdy General: Chief complaint: Skin/Abscess/Foreign Body Stated complaint: lump lt breast Time Seen by Provider: 11/16/24 11:03 Source: patient Mode of arrival: ambulatory Limitations: no limitations History of Present Illness: Patient is a 49-year-old female with a longstanding history of hidradenitis suppurativa here for concerns of a left breast lesion/abscess. Patient states she has had several (6+) surgeries to the left breast due to these lesions. States she was initially seeing a general surgeon in [place], [place] who was performing them. She then switched to a breast specialist through [facility]. She states her last surgery was 2 years ago. She did have tissue sent for pathology and states it was negative for malignancy. She has not had a mammogram in several years. She states she is on Humira for her HS and has topical clobetasol that she uses for superficial lesions. Patient states currently she is on antibiotics for the left breast but states she is miserable. Did have area lanced a few days ago but states they did not go deep enough . She states the only thing that helps when she gets lesions this big/painful is surgical incision. MD complaint: abscess/boil Onset (ago): day(s) (9 days) Tetanus up to date: yes Location: chest (L breast) Severity: moderate Pain Consistency: constant Relieving factors: none Exacerbating factors: none Context: other (hx of hidradenitis suppurativa) Associated symptoms: Reports no associated symptoms; Deny chills or fever(s) Treatments prior to arrival: none Related Data Home Medications ?Medication ?Instructions ?Recorded ?Confirmed amoxicillin 875 mg-potassium 1 tab PO BID 11/16/24 11/16/24 clavulanate 125 mg tablet ondansetron 4 mg disintegrating 4 mg PO Q8H PRN Nausea And Vomiting 11/16/24 11/16/24 tablet oxycodone-acetaminophen 5 mg-325 1 tab PO Q4H PRN Pain 11/16/24 11/16/24 mg tablet Allergies Allergy/AdvReac Type Severity Reaction Status Date / Time sulfamethoxazole (From Allergy Severe ALGY-Hives Verified 11/16/24 11:15 ) trimethoprim (From ) Allergy Severe ALGY-Hives Verified 11/16/24 11:15 Review of Systems Const: Denies: fever(s), chills, body aches, fatigue or malaise Card: Denies: chest pain Resp: Denies: dyspnea Skin/Breast: Reports: other (HS abscess L breast) Neuro: Denies: headache(s) or dizziness Physical Exam Const: COMMON NORMALS: no acute distress, patient oriented x3, no limitations, alert and well nourished GENERAL APPEARANCE: cooperative Chest: Breast/axilla inspection: Yes abnormal inspection of the breast OTHER: pt has disfigurement of the left breast due to several previous breast surgeries; she has active lesion to medial aspect of L nipple with signficant tenderness and induration Resp: COMMON NORMALS: normal respiratory effort and clear to auscultation bilaterally AUSCULTATION: clear to auscultation bilaterally Cardio: COMMON NORMALS: regular rate and regular rhythm RATE: regular rate RHYTHM: regular rhythm Neuro: COMMON NORMALS: patient oriented x3 SENSORIUM/ORIENTATION: Yes alert Skin: NARRATIVE SKIN EXAM: see above Course Consultations: Consultation #1: Dr. Pritchett-recommend consulting with IR to attempt drainage, IV antibiotics with vancomycin, admit to his service Consultation #2: Dr. Begum-graciously willing to attempt needle aspiration Vital Signs: Vital signs: Vital Signs Temperature 98.0 F 11/16/24 11:10 Pulse Rate 57 L 11/16/24 15:34 Respiratory Rate 17 11/16/24 14:47 Blood Pressure 105/70 11/16/24 15:34 Pulse Oximetry 97 11/16/24 15:34 Oxygen Delivery Me thod Room Air 11/16/24 16:31 MDM - Skin/Abscess/Foreign Bdy Medicial Decision Making Patient is a 49-year-old with a history of hidradenitis suppurativa here for a 4 x 4 centimeter left breast phlegmon. Seemingly failed conservative therapy as she has had a recent I&D and has been on oral antibiotics. She will be admitted to general surgery for definitive management. Medical Records I reviewed the patient's medical records. Lab Data I reviewed the patient's lab results. 11/16/24 14:34 11/16/24 14:34 Radiology Impressions Breast Ultrasound 11/16/24 11:47 IMPRESSION: BI-RADS: 3- Probably Benign FOLLOW-UP: See Report Complex fluid collection centered along the 9:00 axis LEFT breast. This is most consistent with a phlegmonous collection. Collection measures 4.1 x 1.2 x 3.9 cm. Not well encapsulated or liquefied at this time. Consistent with a developing breast abscess. Aspiration may not be successful as it is not well liquefied. Recommend follow-up with breast surgeon and appropriate antibiotic treatment. Repeat ultrasound evaluation after treatment. Differential would include inflammatory breast carcinoma. Follow-up ultrasound necessary to ensure resolution. Needle Aspiration US 11/16/24 13:56 IMPRESSION: Only a small amount of bloody fluid was aspirated from the complex collection, approximately 1 to 2 cc. No additional fluid could be aspirated. Fluid will be sent for Gram stain if possible. Recommend breast surgery consultation and follow-up to resolution. DENSITY: The breasts are heterogeneously dense, which may obscure small masses. BI-RADS: 3 - Probably Benign FOLLOW UP: See Report All radiology interpretation(s) finalized by discharge Discharge Plan Discharge Patient Disposition: Admitted As Inpatient Admit Provider: Naun Pritchett Clinical Impression: Hidradenitis suppurativa, Abscess of left breast Condition: Stable Coding Level of Care Code ED Baby Stroller Rental Clerk for Chg Fwd Documented by User: Rios Phan DO 11/16/24 18:57 HPI - Skin/Abscess/Foreign Bdy General: Chief complaint: Skin/Abscess/Foreign Body Stated complaint: lump lt breast Time Seen by Provider: 11/16/24 11:03 Related Data Home Medications ?Medication ?Instructions ?Recorded ?Confirmed amoxicillin 875 mg-potassium 1 tab PO BID 11/16/24 11/16/24 clavulanate 125 mg tablet ondansetron 4 mg disintegrating 4 mg PO Q8H PRN Nausea And Vomiting 11/16/24 11/16/24 tablet oxycodone-acetaminophen 5 mg-325 1 tab PO Q4H PRN Pain 11/16/24 11/16/24 mg tablet Allergies Allergy/AdvReac Type Severity Reaction Status Date / Time sulfamethoxazole (From Allergy Severe ALGY-Hives Verified 11/16/24 11:15 Sept) trimethoprim (From ) Allergy Severe ALGY-Hives Verified 11/16/24 11:15 Course Vital Signs: Vital signs: Vital Signs Temperature 98.0 F 11/16/24 11:10 Pulse Rate 57 L 11/16/24 15:34 Respiratory Rate 17 11/16/24 14:47 Blood Pressure 105/70 11/16/24 15:34 Pulse Oximetry 97 11/16/24 15:34 Oxygen Delivery Me thod Room Air 11/16/24 16:31 MDM - Skin/Abscess/Foreign Bdy Medicial Decision Making Patient is a 49-year-old with a history of hidradenitis suppurativa here for a 4 x 4 centimeter left breast phlegmon. Seemingly failed conservative therapy as she has had a recent I&D and has been on oral antibiotics. She will be admitted to general surgery for definitive management. Chart reviewed and patient discussed with midlevel. Agree with assessment and plan. Lab Data 11/16/24 14:34 11/16/24 14:34 Radiology Impressions Breast Ultrasound 11/16/24 11:47 IMPRESSION: BI-RADS: 3- Probably Benign FOLLOW-UP: See Report Complex fluid collection centered along the 9:00 axis LEFT breast. This is most consistent with a phlegmonous collection. Collection measures 4.1 x 1.2 x 3.9 cm. Not well encapsulated or liquefied at this time. Consistent with a developing breast abscess. Aspiration may not be successful as it is not well liquefied. Recommend follow-up with breast surgeon and appropriate antibiotic treatment. Repeat ultrasound evaluation after treatment. Differential would include inflammatory breast carcinoma. Follow-up ultrasound necessary to ensure resolution. Needle Aspiration US 11/16/24 13:56 IMPRESSION: Only a small amount of bloody fluid was aspirated from the complex collection, approximately 1 to 2 cc. No additional fluid could be aspirated. Fluid will be sent for Gram stain if possible. Recommend breast surgery consultation and follow-up to resolution. DENSITY: The breasts are heterogeneously dense, which may obscure small masses. BI-RADS: 3 - Probably Benign FOLLOW UP: See Report Discharge Plan Discharge Patient Disposition: Admitted As Inpatient Admit Provider: Naun Pritchett Clinical Impression: Hidradenitis suppurativa, Abscess of left breast Condition: Stable Coding Level of Care Code ED Baby Stroller Rental Clerk for [place] Shari
--- NOTE | 2024-11-16 11:47 | US_ITS ---
WS: [id number] ULTRASOUND LEFT BREAST HISTORY: hx of hidradenitis suppurativa/abscess COMPARISON: None available. TECHNIQUE: 2-D and Doppler. Superficial complex fluid collection centered along the medial breast near 9:00. There is a complex collection infiltrating the soft tissues and just beneath the skin surface but also extending into the parenchyma. The exact measurements are difficult to obtain but estimated size of this inflammatory process is 4.1 x 1.2 x 3.9 cm. There is no well-formed fluid collection or encapsulated collection. There is increased vascularity. US/US breast LT limited* [id number] IMPRESSION: BI-RADS: 3- Probably Benign FOLLOW-UP: See Report Complex fluid collection centered along the 9:00 axis LEFT breast. This is most consistent with a phlegmonous collection. Collection measures 4.1 x 1.2 x 3.9 cm. Not well encapsulated or liquefied at this time. Consistent with a developi ng breast abscess. Aspiration may not be successful as it is not well liquefied . Recommend follow-up with breast surgeon and appropriate antibiotic treatment. R epeat ultrasound evaluation after treatment. Differential would include inflamm atory breast carcinoma. Follow-up ultrasound necessary to ensure resolution.
--- NOTE | 2024-11-16 13:51 | P.HP_ITS ---
Providers/Chief Complaint 2 Chief Complaint: lump lt breast History of Present Illness Hiwot Gaona is a 49 year old female history of hidradenitis who has had multiple incision and drainage of left breast abscess. She has a history of a breast resection per patient for benign disease. Patient has been on antibiotics for approximately 5 days. She comes back with redness and pain after having the breast abscess I&D at another facility. Patient has a pinpoint wound. Some erythema surrounding it. IR able to aspirate a small amount of fluid. IV antibiotics started. Medications/Allergies Home Medications ?Medication ?Instructions ?Recorded ?Confirmed ?Last Taken ?Type amoxicillin 875 mg-potassium 1 tab PO BID 11/16/2409/0511/15/24 History clavulanate 125 mg tablet ondansetron 4 mg disintegrating 4 mg PO Q8H PRN Nausea And Vomiting 11/16/24 11/16/24 Unknown History tablet oxycodone-acetaminophen 5 mg-325 1 tab PO Q4H PRN Pain 11/16/24 11/16/24 Unknown History mg tablet Allergies Allergy/AdvReac Type Severity Reaction Status Date / Time sulfamethoxazole (From Allergy Severe ALGY-Hives Verified 11/16/24 11:15 Septra) trimethoprim (From ) Allergy Severe ALGY-Hives Verified 11/16/24 11:15 Vitals/I&O/Wt Last Vital Signs Temp 98.0 F 11/16/24 11:10 Pulse 54 L 11/16/24 13:32 Resp 16 11/16/24 11:10 BP 104/67 11/16/24 13:32 Pulse Ox 98 11/16/24 13:32 O2 Del Method Room Air 11/16/24 13:32 Weight last 48 hrs Weight 216 lb Physical Exam 2 Narrative: Chest: Unlabored breathing room air. No lymphadenopathy. Left breast: Periareolar pinpoint wound. Surrounding erythema. No fluctuance. Heart: Regular rate and rhythm. Abdomen: Soft, nontender, nondistended. No masses or lymphadenopathy. Data 11/16/24 14:34 11/16/24 14:34 A&P Assessment and plan 1. Abscess of left breast: Plan: 49-year-old female who presented with a left breast abscess. Status post IR ultrasound-guided drainage. Will be admitted for IV antibiotics. If she does not respond appropriately, she may need incision and drainage in the operating room. PDMP PDMP Reviewed: Not Reviewed Attestations 2 Medical Necessity Statement*: IV antibiotics, IV fluids IV pain meds, serial physical exams, possibility of incision and drainage and debridement in the operating room Coding Level of Care Code 05519 Diagnoses Abscess of left breast N61.1
--- NOTE | 2024-11-16 13:56 | US_ITS ---
WS: [id number] ULTRASOUND-GUIDED LEFT BREAST ABSCESS ASPIRATION CLINICAL INFORMATION: HS abscess COMPARISON: None. FINDINGS: The procedure including risks, benefits, and complications were discussed with the patient who agreed to proceed. Using sterile technique patient was prepped and draped in the usual sterile fashion. After 1% lidocaine utilizing real-time ultrasound guidance an 18-gauge needle was advanced into the subareolar complex collection. Only a small amount of fluid, approximately 1 to 2 cc of bloody fluid was aspirated. 2 additional passes were made with an 18-gauge needle and a 4 [place] Yueh catheter with no additional significant fluid. Small amount of fluid will be sent for Gram stain if possible. Patient reports pustulous drainage over the past several days from the prior attempted incision and drainage at the outside facility. [facility] asp a/c/h [id number] IMPRESSION: Only a small amount of bloody fluid was aspirated from the complex collection, approximately 1 to 2 cc. No additional fluid could be aspirated. Fluid will be sent for Gram stain if possible. Recommend breast surgery consultation and foll ow-up to resolution. DENSITY: The breasts are heterogeneously dense, which may obscure small masses. BI-RADS: 3 - Probably Benign FOLLOW UP: See Report
--- NOTE | 2024-11-16 14:26 | PC.NURSE ---
HOLDING ANTIBIOTICS DUE TO BLOOD CULTURES NOT BEING DRAWN YET.
[2024-11-16 14:47] LABS: Hematocrit 37.2 % (36-47); Hemoglobin 12.20 g/dL (11.27-16.99); Mean Corpuscular HGB Conc 32.8 g/dL (30-55); Mean Corpuscular Hemoglobin 28.6 pg (27-33); Mean Corpuscular Volume 87.1 fl (85-98); Nucleated Red Blood Cells % 0 %; Platelet Count 329 10^3/cmm (157-399); Red Blood Count 4.27 10^6/uL (3.85-5.65); White Blood Count 8.52 10^3/uL (3.29-11.43)
[2024-11-16] MEDS: LORazepam 1 MG/0.5 ML injection IVP (14:47)
[2024-11-16] MEDS: morphine 4 mg/mL SDV 1 mL IVP ×2 (14:47→22:53)
[2024-11-16 14:58] LABS: Alanine Aminotransferase 8 U/L (0-33); Albumin Level 3.9 g/dL (3.5-5.2); Alkaline Phosphatase 80 U/L (35-105); Anion Gap 15.3 (5-19); Aspartate Amino Transferase 14 U/L (0-32); Blood Urea Nitrogen 14 mg/dL (6-20); Calcium 8.9 mg/dL (8.5-10.5); Carbon Dioxide 27 mmol/L (22-29); Chloride 102 mmol/L (98-107); Globulin 3.7 g/dL (1.3-4.6); Glucose 84 mg/dL (65-115); Osmolality Calculated 290 mOsm/kg (285-295); Potassium 4.3 mmol/L (3.5-5.1); Sodium 140 mmol/L (136-145); Total Protein 7.6 g/dL (6.6-8.7)
[2024-11-16] MEDS: ondansetron 2 mg/ML SDV 2 mL 4 MG IVP (22:52)
[2024-11-17] VITALS (8 sets, daily range): BP systolic 95–135; BP diastolic 56–85; PULSE 56–70; RESP 14–18; TEMP 36.3–36.8; O2SAT 96–98; BMI 38.9
[2024-11-17 06:24] LABS: HCG, Serum Qual Negative (Negative)
[2024-11-17] MEDS: morphine 4 mg/mL SDV 1 mL IVP (07:31)
[2024-11-17] MEDS: ondansetron 2 mg/ML SDV 2 mL 4 MG IVP ×3 (07:32→19:47)
--- NOTE | 2024-11-17 09:51 | P.PN_ITS ---
Subjective 2 Subjective: Erythema improving Less tenderness No fluctuance Vitals/I&O/Wt Last Vital Signs Temp 97.9 F 11/17/24 07:14 Pulse 62 11/17/24 07:14 Resp 14 11/17/24 07:31 BP 108/73 11/17/24 07:14 Pulse Ox 96 11/17/24 07:14 O2 Del Method Room Air 11/17/24 07:14 11/16/24 11/17/24 11/17/24 22:59 06:59 14:59 Intake Total 480 / 480 540 / 1020 Output Total 100 / 100 Balance 480 / 480 540 / 1020 -100 / -100 Weight last 48 hrs Weight 220 lb Weight 224 lb Weight 226 lb Weight 216 lb Physical Exam 2 Narrative: Chest: Unlabored breathing room air. No lymphadenopathy. Left breast: Pinpoint wound. Surrounding erythema. Heart: Regular rate and rhythm. Abdomen: Soft, nontender, nondistended. No masses or lymphadenopathy. Data 11/16/24 14:34 11/16/24 14:34 Micro: Microbiology 11/16/24 16:04 Blood Culture - Preliminary Blood SPECIMEN COLLECTED 11/16/24 14:34 Blood Culture - Preliminary Blood SPECIMEN COLLECTED A&P Assessment and plan 1. Abscess of left breast: Plan: 49-year-old female with left breast abscess. Continue IV antibiotics. Will reevaluate tomorrow and determine need for debridement in the OR. PDMP PDMP Reviewed: Not Reviewed Attestations 2 Medical Necessity Statement*: IV antibiotics, IV fluids, IV pain meds, serial physical exam Coding Level of Care Code 15403 Diagnoses Abscess of left breast N61.1
--- NOTE | 2024-11-17 21:27 | PHA.VACGOAL ---
Vancomycin Goal - Goal Vancomycin Goal:: 10-15 mg/L Vancomycin Indication:: SSTI - Therapy Day of therpy:: Day []of [] . Actual body weight (kg): 220 lb - Data Labs: WBC 8.52 10^3/uL (3.29-11.43) 11/16/24 14:34 RBC 4.27 10^6/uL (3.85-5.65) 11/16/24 14:34 Hgb 12.20 g/dL (11.27-16.99) 11/16/24 14:34 Hct 37.2 % (36-47) 11/16/24 14:34 MCV 87.1 fl (85-98) 11/16/24 14:34 MCH 28.6 pg (27-33) 11/16/24 14:34 MCHC 32.8 g/dL (30-55) 11/16/24 14:34 RDW 12.5 % (12.1-15.1) 11/16/24 14:34 Sodium 140 mmol/L (136-145) 11/16/24 14:34 Potassium 4.3 mmol/L (3.5-5.1) 11/16/24 14:34 Chloride 102 mmol/L (98-107) 11/16/24 14:34 Carbon Dioxide 27 mmol/L (22-29) 11/16/24 14:34 Anion Gap 15.3 (5-19) 11/16/24 14:34 BUN 14 mg/dL (6-20) 11/16/24 14:34 Creatinine 0.8 mg/dL (0.5-0.9) 11/16/24 14:34 GFR Calculation 76.9 mL/min (90-130) L 11/16/24 14:34 Treatment plan:: new consult Regimen:: STARTING PATIENT ON MAINTENANCE DOSE OF 1250 MG Q12H PER PROTOCOL. WILL OBTAIN TROUGH PRIOR TO FOURTH DOSE.
[2024-11-18] VITALS: BP 125/64; PULSE 52; RESP 16; TEMP 36.4; O2SAT 98
[2024-11-18 04:00] VITALS: BP 131/85; PULSE 60; RESP 17; TEMP 36.4; O2SAT 100
[2024-11-18 07:48] VITALS: BP 124/79; PULSE 62; RESP 16; TEMP 36.5; O2SAT 100
--- NOTE | 2024-11-18 08:49 | PC.NURSE ---
SCD Refusal: Pt is up ad jah, SCDs are uncomfortable and hot. Pt does not want to wear them at this time.
[2024-11-18] MEDS: pantoprazole 40 mg SDV IVP (10:19)
--- NOTE | 2024-11-18 10:27 | P.PN_ITS ---
Subjective 2 Subjective: Left breast cellulitis significantly improved Less tender left breast Vitals/I&O/Wt Last Vital Signs Temp 97.7 F 11/18/24 07:48 Pulse 62 11/18/24 07:48 Resp 16 11/18/24 07:48 BP 124/79 11/18/24 07:48 Pulse Ox 100 11/18/24 07:48 O2 Del Method Room Air 11/18/24 07:48 11/17/24 11/18/24 11/18/24 22:59 06:59 14:59 Intake Total 1960 / 2690 250 / 2940 1000 / 1000 Output Total 900 / 900 Balance 1960 / 2390 250 / 2640 100 / 100 Weight last 48 hrs Weight 250 lb Weight 220 lb Weight 224 lb Weight 226 lb Weight 216 lb Physical Exam 2 Narrative: Chest: Left breast cellulitis significantly improved. Heart: Regular rate and rhythm. Abdomen: Soft, nontender, nondistended. No masses or lymphadenopathy. Data 11/16/24 14:34 11/16/24 14:34 Micro: Microbiology 11/16/24 16:04 Blood Culture - Preliminary Blood NEGATIVE TO DATE 11/16/24 14:34 Blood Culture - Preliminary Blood NEGATIVE TO DATE A&P Assessment and plan 1. Abscess of left breast: Plan: 49-year-old female who presented with a left breast abscess. IR performed ultrasound-guided aspiration. Treated with IV antibiotics. Responded appropriately. Cleared for discharge. Okay to return to work in 5 days. Follow-up in 2 weeks. PDMP PDMP Reviewed: Not Reviewed Attestations 2 Medical Necessity Statement*: IV antibiotics, IV fluids, IV pain meds Coding Level of Care Code 63716 Diagnoses Abscess of left breast N61.1
--- NOTE | 2024-11-18 10:34 | PM.DCS ---
Discharge Providers Date of Admission: 11/16/24 13:59 Date of Discharge: November 18, 2024 Attending Provider at Admission: Naun Pritchett MD Attending Provider at Discharge: Naun Pritchett MD Diagnoses at Discharge Discharge Diagnosis 1. Abscess of left breast: Reason for Visit Reason for Visit: lump lt breast Hospital Course Hospital Course 49-year-old female who presented with a left breast abscess. Responded well to IV anabiotics, ultrasound-guided aspiration of abscess. Discharged on a 7-day course of linezolid. Will also prescribe Protonix for epigastric pain. Follow-up in 2 weeks with general surgery clinic. Physical Exam Narrative: Chest: Left breast cellulitis much improved. Heart: Regular rate and rhythm. Abdomen: Soft, nontender, nondistended. No masses or lymphadenopathy. Discharge Data Studies Completed and Pending Completed Studies During Hospitalization Category Date Time Status US breast LT limited* [id number] Stat Ultrasound 11/16/24 11:47 Completed US [facility] asp a/c/h [id number] Stat Ultrasound 11/16/24 13:56 Completed Pending at discharge Category Date Time Status Abscess Culture and Gram Stain Stat Lab 11/16/24 15:30 Uncollected Blood Culture Stat Lab 11/16/24 16:04 Results CBC Auto Diff [Complete Blood Count w/Auto] AM LABS Lab 11/18/24 04:00 Ordered Vancomycin Trough Timed Lab 11/18/24 21:30 Ordered Pathology: Surgical [PTH] Routine Pth 11/17/24 07:38 Received Radiology Impressions Breast Ultrasound 11/16/24 11:47 IMPRESSION: BI-RADS: 3- Probably Benign FOLLOW-UP: See Report Complex fluid collection centered along the 9:00 axis LEFT breast. This is most consistent with a phlegmonous collection. Collection measures 4.1 x 1.2 x 3.9 cm. Not well encapsulated or liquefied at this time. Consistent with a developing breast abscess. Aspiration may not be successful as it is not well liquefied. Recommend follow-up with breast surgeon and appropriate antibiotic treatment. Repeat ultrasound evaluation after treatment. Differential would include inflammatory breast carcinoma. Follow-up ultrasound necessary to ensure resolution. Needle Aspiration US 11/16/24 13:56 IMPRESSION: Only a small amount of bloody fluid was aspirated from the complex collection, approximately 1 to 2 cc. No additional fluid could be aspirated. Fluid will be sent for Gram stain if possible. Recommend breast surgery consultation and follow-up to resolution. DENSITY: The breasts are heterogeneously dense, which may obscure small masses. BI-RADS: 3 - Probably Benign FOLLOW UP: See Report Laboratory Results WBC 8.52 10^3/uL (3.29-11.43) 11/16/24 14:34 RBC 4.27 10^6/uL (3.85-5.65) 11/16/24 14:34 Hgb 12.20 g/dL (11.27-16.99) 11/16/24 14:34 Hct 37.2 % (36-47) 11/16/24 14:34 MCV 87.1 fl (85-98) 11/16/24 14:34 MCH 28.6 pg (27-33) 11/16/24 14:34 MCHC 32.8 g/dL (30-55) 11/16/24 14:34 RDW 12.5 % (12.1-15.1) 11/16/24 14:34 Plt Count 329 10^3/cmm (157-399) 11/16/24 14:34 MPV 9.7 fL (7.4-10.4) 11/16/24 14:34 Neut % (Auto) 58.0 % 11/16/24 14:34 Lymph % (Auto) 29.9 % 11/16/24 14:34 [place] % (Auto) 8.6 % 11/16/24 14:34 Eos % (Auto) 2.6 % 11/16/24 14:34 Baso % (Auto) 0.5 % 11/16/24 14:34 Neut # (Auto) 4.95 10^3/uL (1.8-7.7) 11/16/24 14:34 Lymph # (Auto) 2.6 10^3/uL (0.8-4.8) 11/16/24 14:34 [place] # (Auto) 0.7 10^3/uL (0.2-0.9) 11/16/24 14:34 Eos # (Auto) 0.2 10^3/uL (0.0-0.8) 11/16/24 14:34 Baso # (Auto) 0.0 10^3/uL (0.0-0.1) 11/16/24 14:34 Nucleated RBC % (auto) 0 % 11/16/24 14:34 Nucleated RBCs # 0.0 /100WBC 11/16/24 14:34 Sodium 140 mmol/L (136-145) 11/16/24 14:34 Potassium 4.3 mmol/L (3.5-5.1) 11/16/24 14:34 Chloride 102 mmol/L (98-107) 11/16/24 14:34 Carbon Dioxide 27 mmol/L (22-29) 11/16/24 14:34 Anion Gap 15.3 (5-19) 11/16/24 14:34 BUN 14 mg/dL (6-20) 11/16/24 14:34 Creatinine 0.8 mg/dL (0.5-0.9) 11/16/24 14:34 GFR Calculation 76.9 mL/min (90-130) L 11/16/24 14:34 Glucose 84 mg/dL (65-115) 11/16/24 14:34 Calculated Osmolality 290 mOsm/kg (285-295) 11/16/24 14:34 Calcium 8.9 mg/dL (8.5-10.5) 11/16/24 14:34 Total Bilirubin 0.2 mg/dL (0.15-1.2) 11/16/24 14:34 AST 14 U/L (0-32) 11/16/24 14:34 ALT 8 U/L (0-33) 11/16/24 14:34 Alkaline Phosphatase 80 U/L (35-105) 11/16/24 14:34 Total Protein 7.6 g/dL (6.6-8.7) 11/16/24 14:34 Albumin 3.9 g/dL (3.5-5.2) 11/16/24 14:34 Globulin 3.7 g/dL (1.3-4.6) 11/16/24 14:34 HCG, Qual Negative (Negative) 11/16/24 14:34 Vitals Last Vital Signs Temp 97.7 F 11/18/24 07:48 Pulse 62 11/18/24 07:48 Resp 16 11/18/24 07:48 BP 124/79 11/18/24 07:48 Pulse Ox 100 11/18/24 07:48 O2 Del Method Room Air 11/18/24 07:48 Discharge Plan Discharge Patient Disposition: Home Condition: Stable Prescriptions: New pantoprazole [Protonix] 40 mg tablet,delayed release (DR/EC) 40 mg PO DAILY 42 Days Qty: 42 0RF linezolid 600 mg tablet 600 mg PO BID 7 Days Qty: 14 0RF Continued oxycodone-acetaminophen 5-325 mg tablet 1 tab PO Q4H PRN (Reason: Pain) ondansetron 4 mg tablet,disintegrating 4 mg PO Q8H PRN (Reason: Nausea And Vomiting) Discontinued amoxicillin-pot clavulanate [Augmentin] 875-125 mg Tablet 1 tab PO BID Discharge Order = DC NOW: Discharge Order (Routine); Ordered 11/18/24 Ordered By: Naun Pritchett Referrals: Naun Pritchett MD [Physician, General Surgery] - 2 weeks Discharge Diet: Usual diet Discharge Activity: Resume usual activity Patient Instructions: Opioid Safety, Patient Portal & [place] Instructions Activity Restrictions/Additional Instructions: 1. Finish course of oral antibiotics. Take protonix for heartburn. 2. Follow up in 2 weeks with general surgery. 3. Call the office if you have any concerns. Return to ED for worsening redness, left breast pain. Discharge Attestations Time Spent in Discharge Care*: greater than 30 min Quality Metrics Clinical Quality Measures [ No reported AMI, CVA or VTE this stay] Coding Level of Care Code Acute Code for Chg Fwd Diagnoses Abscess of left breast N61.1
[2024-11-18 11:41] VITALS: BP 125/76; PULSE 59; RESP 17; TEMP 36.7; O2SAT 99
[2024-11-18 13:55] VITALS: BP 125/76; PULSE 59; RESP 17; TEMP 36.7; O2SAT 99
== END 2024-11-18 14:34 | disposition home or self-care (01) | DRG 601 ==
LOC: ER 11:34 → MEDSURG 14:12
PROVIDERS: Admitting Provider Student in an Organized Health Care Education/Training Program; Emergency Provider Physician Assistant; Visit Provider Student in an Organized Health Care Education/Training Program
DX: N61.1 Abscess of the breast and nipple (principal); Z79.891 Long term (current) use of opiate analgesic; L73.2 Hidradenitis suppurativa
CPT/HCPCS: 10160; 36415; 76642; 76942; 80053; 84703; 85025; 87040; 88112; 88305; 96365; 96375; 99285; J1885; J2060; J2270; J2405; J2470; J3373; J7030

== ENCOUNTER 2025-01-14 14:38 | Outpatient (CLI) | payer OTHER, SELFPAY ==
[2025-01-14 15:06] LABS: Hematocrit 36.3 % (36-47); Hemoglobin 12.10 g/dL (11.27-16.99); Mean Corpuscular HGB Conc 33.3 g/dL (30-55); Mean Corpuscular Hemoglobin 28.5 pg (27-33); Mean Corpuscular Volume 85.6 fl (85-98); Nucleated Red Blood Cells % 0 %; Platelet Count 297 10^3/cmm (157-399); Red Blood Count 4.24 10^6/uL (3.85-5.65); White Blood Count 8.58 10^3/uL (3.29-11.43)
[2025-01-14 15:22] LABS: Anion Gap 18.1 (5-19); Blood Urea Nitrogen 20 mg/dL (6-20); Calcium 9.2 mg/dL (8.5-10.5); Carbon Dioxide 23 mmol/L (22-29); Chloride 106 mmol/L (98-107); Glucose 126 mg/dL (65-115); Osmolality Calculated 300 mOsm/kg (285-295); Potassium 4.1 mmol/L (3.5-5.1); Sodium 143 mmol/L (136-145)
[2025-01-14 15:47] LABS: Hepatitis A Antibody IgM Non-Reactive (Nonreactive); Hepatitis B Surface Antigen Non-Reactive (Nonreactive)
== END 2025-01-14 14:39 | disposition home or self-care (01) ==
LOC: LAB 14:41
PROVIDERS: PCP Nurse Practitioner; Visit Provider Nurse Practitioner Family
DX: L73.2 Hidradenitis suppurativa (principal)
CPT/HCPCS: 36415; 80048; 80074; 85025; 86480